=== PATIENT | female | born 1965 | race African-American/Black ===

== ENCOUNTER 2017-12-25 13:29 | Emergency (ER) | payer OTHER ==
[~2017-12-25] VITALS: Ht 160 cm; Wt 79.8 kg
[~2017-12-25 13:29] MED LIST: FLEXERIL PO; MEDROLDOSEPACK PO; NEURONTIN600 MG PO; NORCO 5-325 TA1 EACH PO; PREDNISONE 20 M20 MG PO
[2017-12-25] MEDS ORDERED: TRAMADOL 50 MG50 MG PO (14:56)
[2017-12-25] MEDS ORDERED: NORFLEX100 MG PO (14:56)
== END 2017-12-25 15:09 | disposition home or self-care (01) ==
LOC: ER 13:29
DX: S16.1XXA Strain of muscle, fascia and tendon at neck level, initial encounter (principal); I10 Essential (primary) hypertension; F17.210 Nicotine dependence, cigarettes, uncomplicated; Z90.710 Acquired absence of both cervix and uterus; Z88.6 Allergy status to analgesic agent; V89.2XXA Person injured in unspecified motor-vehicle accident, traffic, initial encounter; Y93.89 Activity, other specified; Y92.89 Other specified places as the place of occurrence of the external cause; Y99.8 Other external cause status

== ENCOUNTER 2018-04-14 06:04 | Emergency (ER) | payer BC, OTHER ==
[~2018-04-14] VITALS: Ht 160 cm; Wt 79.4 kg
[~2018-04-14 06:04] MED LIST changes: +NORFLEX100 MG PO; +TRAMADOL 50 MG50 MG PO
[2018-04-14 06:51] LABS: URINE BILIRUBIN NEGATIVE (Negative); URINE BLOOD TRACE (Negative); URINE CLARITY HAZY; URINE COLOR YELLOW; URINE GLUCOSE-RANDOM* NEGATIVE (Negative); URINE KETONES NEGATIVE (Negative); URINE LEUKOCYTES NEGATIVE (Negative); URINE NITRITE NEGATIVE (Negative); URINE PROTEIN (DIPSTICK) NEGATIVE (Negative); URINE SPECIFIC GRAVITY 1.025 (1.005-1.035)
[2018-04-14 07:36] LABS: ABSOLUTE NEUTROPHILS 4.2 thou/uL (1.4-8.2); BASOPHILS 0.8 % (0.0-2.0); EOSINOPHILS 1.9 % (0.0-3.0); HEMATOCRIT 37.1 % (37.0-47.0); HEMOGLOBIN 12.8 gm/dL (12.0-15.0); MCHC 34.6 g/dL (28.0-37.0); MCV 95.5 fL (80.0-100.0); MONOCYTES 8.7 % (1.0-8.0); PLATELET COUNT 348 thou/uL (150-400); POLYS 46.6 % (36.0-66.0); RBC 3.88 mil/uL (4.20-5.00); RDW 13.6 % (10.5-14.5)
[2018-04-14 07:47] LABS: CALCIUM 9.3 mg/dL (8.5-10.1); CREATININE 0.9 mg/dL (0.6-1.0); POTASSIUM 3.2 mmol/L (3.5-5.1)
[2018-04-14] MEDS ORDERED: METOPROLOL TART25 MG PO (07:54)
[2018-04-14 08:15] VITALS: BP 182/80
== END 2018-04-14 08:15 | disposition home or self-care (01) ==
LOC: ER 06:04
PROVIDERS: Emergency Medicine
DX: R31.9 Hematuria, unspecified (principal); M54.9 Dorsalgia, unspecified; Z71.6 Tobacco abuse counseling; I10 Essential (primary) hypertension; E87.6 Hypokalemia; Z90.710 Acquired absence of both cervix and uterus; F17.210 Nicotine dependence, cigarettes, uncomplicated; Z88.6 Allergy status to analgesic agent

== ENCOUNTER 2019-01-03 09:02 | Emergency (ER) | payer BC, OTHER ==
[~2019-01-03] VITALS: Ht 160 cm; Wt 81.7 kg
[~2019-01-03 09:02] MED LIST changes: +METOPROLOL TART25 MG PO
[2019-01-03 09:55] VITALS: BP 159/88
[2019-01-03 10:19] LABS: URINE BILIRUBIN NEGATIVE (Negative); URINE BLOOD TRACE (Negative); URINE CLARITY CLEAR; URINE COLOR YELLOW; URINE GLUCOSE-RANDOM* NEGATIVE (Negative); URINE KETONES NEGATIVE (Negative); URINE LEUKOCYTES-REFLEX NEGATIVE (Negative); URINE NITRITE-REFLEX NEGATIVE (Negative); URINE PROTEIN (DIPSTICK) NEGATIVE (Negative); URINE UROBILINOGEN 0.2 E.U./dl (0.2-1.0)
[2019-01-03] MEDS ORDERED: HYDROCODONE-AP1 EAC6 PO (10:55)
[2019-01-03] MEDS ORDERED: VALIUM2 MG PO (10:55)
[2019-01-03] MEDS ORDERED: MOBIC15 MG PO (10:55)
== END 2019-01-03 11:12 | disposition home or self-care (01) ==
LOC: ER 09:02
PROVIDERS: Emergency Medicine
DX: M46.1 Sacroiliitis, not elsewhere classified (principal); R35.0 Frequency of micturition; F17.210 Nicotine dependence, cigarettes, uncomplicated; I10 Essential (primary) hypertension; Z90.710 Acquired absence of both cervix and uterus; Z88.6 Allergy status to analgesic agent; Z98.890 Other specified postprocedural states

== ENCOUNTER 2019-05-26 10:37 | Emergency (ER) | payer BC, OTHER ==
[~2019-05-26] VITALS: Ht 160 cm; Wt 79.4 kg
[~2019-05-26 10:37] MED LIST changes: +HYDROCODONE-AP1 EAC6 PO; +MOBIC15 MG PO; +VALIUM2 MG PO
[2019-05-26] MEDS ORDERED: NORCO 5-325 TA1 EAC1 PO (12:03)
[2019-05-26] MEDS ORDERED: NAPROSYN500 MG PO (12:03)
[2019-05-26 12:21] VITALS: BP 118/74
== END 2019-05-26 12:19 | disposition home or self-care (01) ==
LOC: ER 10:37
DX: M54.5 Low back pain (principal); M25.562 Pain in left knee; F17.210 Nicotine dependence, cigarettes, uncomplicated; I10 Essential (primary) hypertension; Z90.710 Acquired absence of both cervix and uterus; Z88.6 Allergy status to analgesic agent; Z98.890 Other specified postprocedural states

== ENCOUNTER 2021-07-13 06:29 | Emergency (ER) | payer BC ==
[~2021-07-13] VITALS: Ht 160 cm; Wt 77.1 kg
[~2021-07-13 06:29] MED LIST changes: +NAPROSYN500 MG PO; +NORCO 5-325 TA1 EAC1 PO
[2021-07-13] MEDS ORDERED: WOMEN MULTIVIT1 EAC1 PO (06:39)
[2021-07-13 07:25] LABS: URINE BILIRUBIN NEGATIVE (Negative); URINE BLOOD NEGATIVE (Negative); URINE CLARITY CLEAR; URINE COLOR YELLOW; URINE GLUCOSE-RANDOM* NEGATIVE (Negative); URINE KETONES NEGATIVE (Negative); URINE LEUKOCYTES-REFLEX NEGATIVE (Negative); URINE NITRITE-REFLEX NEGATIVE (Negative); URINE PROTEIN (DIPSTICK) NEGATIVE (Negative); URINE SPECIFIC GRAVITY >= 1.030 (1.005-1.035)
[2021-07-13] MEDS ORDERED: PREDNISONE 20 M20 MG PO (08:07)
[2021-07-13] MEDS ORDERED: FLEXERIL PO (08:07)
[2021-07-13 08:22] VITALS: BP 143/72
== END 2021-07-13 08:24 | disposition home or self-care (01) ==
LOC: ER 06:29
PROVIDERS: Emergency Medicine
DX: M54.32 Sciatica, left side (principal); I10 Essential (primary) hypertension; F17.210 Nicotine dependence, cigarettes, uncomplicated; Z90.710 Acquired absence of both cervix and uterus; Z98.890 Other specified postprocedural states; Z79.899 Other long term (current) drug therapy; Z88.5 Allergy status to narcotic agent